=== PATIENT | male | born 1955 | race African-American/Black ===

== ENCOUNTER 2019-06-11 09:44 | Emergency (ER) | payer OTHER ==
[~2019-06-11] VITALS: Ht 200.7 cm; Wt 74.8 kg
[~2019-06-11 09:44] MED LIST: CYAN1TAB19 PO; DOCU100C28 PO; FERR-36 PO; FERR325T14 PO; FOLI1TAB16 PO; FURO40TA4 PO; HYDR25TA PO; INSU100V8 SQ; OMEP40CA5 PO; PENT400T7 PO; SUCR1TAB PO
[2019-06-11 10:31] LABS: CALCIUM 8.9 mg/dL (8.5-10.1); CREATININE 1.2 mg/dL (0.7-1.3); GFR 73.8; POTASSIUM 5.9 mmol/L (3.5-5.1)
[2019-06-11 10:35] LABS: BASO # 0.2 x10^3/uL (0.0-0.2); BASO % 4 % (0-3); EOS # 0.3 x10^3/uL (0.0-0.7); EOS % 5 % (0-3); HEMATOCRIT 23.4 % (39.0-53.0); HEMOGLOBIN 7.8 g/dL (13.0-17.5); LYMPH % 16 % (24-48); MEAN CORPUSCULAR HEMOGLOBIN 34 pg (25-35); MEAN CORPUSCULAR HGB CONC 33 g/dL (31-37); MEAN CORPUSCULAR VOLUME 103 fL (79-100); MONO # 0.4 x10^3/uL (0.0-1.1); MONO % 6 % (0-9); NEUT # 4.2 x10^3/uL (1.8-7.7); NEUT % 69 % (31-73); PLATELET COUNT 155 x10^3/uL (140-400); RED BLOOD COUNT 2.27 x10^6/uL (4.30-5.70); RED CELL DISTRIBUTION WIDTH 21.9 % (11.5-14.5); WHITE BLOOD COUNT 6.2 x10^3/uL (4.0-11.0)
[2019-06-11 10:36] LABS: ALBUMIN 3.2 g/dL (3.4-5.0); ALBUMIN/GLOBULIN RATIO 0.8 (1.0-1.7); TOTAL BILIRUBIN 0.7 mg/dL (0.2-1.0); TOTAL PROTEIN 7.4 g/dL (6.4-8.2)
--- NOTE | 2019-06-11 10:59 | PHYS DOC ---
Past Medical History Past Medical History: Diabetes-Type II Past Surgical History: Cholecystectomy Alcohol Use: None Drug Use: Marijuana Adult General Chief Complaint Chief Complaint: ABNORMAL LABS HPI HPI Patient is a 63 year old male with history of diabetes that 2, new diagnosis of gastric cancer who presents to the ED today complaining of hypertension. Patient states he had labs done at the oncologist office and they called him today informing him his potassium was 6.0. Patient denies any symptoms. Review of Systems Review of Systems Constitutional: Denies fever or chills [] Eyes: Denies change in visual acuity, redness, or eye pain [] HENT: Denies nasal congestion or sore throat [] Respiratory: Denies cough or shortness of breath [] Cardiovascular: Reports hyperkalemia GI: Denies abdominal pain, nausea, vomiting, bloody stools or diarrhea [] : Denies dysuria or hematuria [] Musculoskeletal: Denies back pain or joint pain [] Integument: Denies rash or skin lesions [] Neurologic: Denies headache, focal weakness or sensory changes [] All other systems were reviewed and found to be within normal limits, except as documented in this note. Current Medications Current Medications Current Medications Medications (Trade) Dose Ordered Sig/Josie Start Time Stop Time Status Last Admin Dose Admin Calcium Gluconate (Calcium Gluconate) 1,000 mg 1X ONCE 06/11/19 11:15 06/11/19 11:16 DC 06/11/19 11:15 1,000 MG Dextrose (Dextrose 50%-Water Syringe) 25 gm 1X ONCE 06/11/19 11:15 06/11/19 11:16 DC 06/11/19 11:15 25 GM Insulin Human Regular (HumuLIN R VIAL) 10 unit 1X ONCE 06/11/19 11:15 06/11/19 11:16 DC 06/11/19 11:21 10 UNIT Sodium Bicarbonate (Sodium Bicarb Adult 8.4% Syr) 50 meq 1X ONCE 06/11/19 11:15 06/11/19 11:16 DC 06/11/19 11:15 50 MEQ Sodium Chloride 1,000 ml @ 1,000 mls/hr 1X ONCE 06/11/19 11:00 06/11/19 11:59 DC 06/11/19 11:03 1,000 MLS/HR Allergies Allergies Allergies Coded Allergies Type Severity Reaction Last Updated Verified No Known Drug Allergies 05/27/19 No Physical Exam Physical Exam Constitutional: Well developed, well nourished, no acute distress, non-toxic appearance. [] HENT: Normocephalic, atraumatic, bilateral external ears normal, oropharynx moist, no oral exudates, nose normal. [] Eyes: PERRLA, EOMI, conjunctiva normal, no discharge. [] Neck: Normal range of motion, no tenderness, supple, no stridor. [] Cardiovascular:Heart rate regular rhythm, no murmur [] Lungs & Thorax: Bilateral breath sounds clear to auscultation [] Abdomen: Bowel sounds normal, soft, no tenderness, no masses, no pulsatile masses. [] Skin: Warm, dry, no erythema, no rash. [] Back: No tenderness, no CVA tenderness. [] Extremities: No tenderness, no cyanosis, no clubbing, ROM intact, no edema. [] Neurologic: Alert and oriented X 3, normal motor function, normal sensory function, no focal deficits noted. [] Psychologic: Affect normal, judgement normal, mood normal. [] Current Patient Data Vital Signs Vital Signs Date Time Temp Pulse Resp B/P (MAP) Pulse Ox O2 Delivery O2 Flow Rate FiO2 06/11/19 09:54 98.8 80 16 142/74 (96) 97 Room Air 98.8 Lab Values Laboratory Tests Test 06/11/19 10:10 06/11/19 12:40 White Blood Count 6.2 x10^3/uL (4.0-11.0) Red Blood Count 2.27 x10^6/uL (4.30-5.70) L Hemoglobin 7.8 g/dL (13.0-17.5) L Hematocrit 23.4 % (39.0-53.0) L Mean Corpuscular Volume 103 fL (79-100) H Mean Corpuscular Hemoglobin 34 pg (25-35) Mean Corpuscular Hemoglobin Concent 33 g/dL (31-37) Red Cell Distribution Width 21.9 % (11.5-14.5) H Platelet Count 155 x10^3/uL (140-400) Neutrophils (%) (Auto) 69 % (31-73) Lymphocytes (%) (Auto) 16 % (24-48) L Monocytes (%) (Auto) 6 % (0-9) Eosinophils (%) (Auto) 5 % (0-3) H Basophils (%) (Auto) 4 % (0-3) H Neutrophils # (Auto) 4.2 x10^3/uL (1.8-7.7) Lymphocytes # (Auto) 1.0 x10^3/uL (1.0-4.8) Monocytes # (Auto) 0.4 x10^3/uL (0.0-1.1) Eosinophils # (Auto) 0.3 x10^3/uL (0.0-0.7) Basophils # (Auto) 0.2 x10^3/uL (0.0-0.2) Platelet Estimate Adequate (ADEQUATE) Large Platelets Occ Anisocytosis Mod Sodium Level 144 mmol/L (136-145) 146 mmol/L (136-145) H Potassium Level 5.9 mmol/L (3.5-5.1) H 5.4 mmol/L (3.5-5.1) H Chloride Level 112 mmol/L (98-107) H 115 mmol/L (98-107) H Carbon Dioxide Level 25 mmol/L (21-32) 25 mmol/L (21-32) Anion Gap 7 (6-14) 6 (6-14) Blood Urea Nitrogen 31 mg/dL (8-26) H 30 mg/dL (8-26) H Creatinine 1.2 mg/dL (0.7-1.3) 1.2 mg/dL (0.7-1.3) Estimated GFR (Cockcroft-Gault) 73.8 73.8 BUN/Creatinine Ratio 26 (6-20) H Glucose Level 147 mg/dL (70-99) H 54 mg/dL (70-99) L Calcium Level 8.9 mg/dL (8.5-10.1) 8.7 mg/dL (8.5-10.1) Total Bilirubin 0.7 mg/dL (0.2-1.0) Aspartate Amino Transferase (AST) 25 U/L (15-37) Alanine Aminotransferase (ALT) 18 U/L (16-63) Alkaline Phosphatase 106 U/L (46-116) Total Protein 7.4 g/dL (6.4-8.2) Albumin 3.2 g/dL (3.4-5.0) L Albumin/Globulin Ratio 0.8 (1.0-1.7) L Laboratory Tests 06/11/19 10:10 Laboratory Tests 06/11/19 10:10 06/11/19 12:40 EKG EKG [address] Frias sinus rhythm heart rate 92 no STEMI[] Radiology/Procedures Radiology/Procedures [] Course & Med Decision Making Course & Med Decision Making Pertinent Labs and Imaging studies reviewed. (See chart for details) This is a 63-year-old male patient with new diagnosis of gastric cancer who presents to the ED today complaining of hyperkalemia from labs that were done yesterday. Potassium was noted at 6.1 yesterday. CMP with potassium of 5.9, creatinine is normal, glucose is 147. Hemoglobin 7.8, hematocrit 23.[address] Rodriguez nephrology, she recommended temporary measures including bicarbonate, calcium gluconate, insulin and IV fluids [address] Frank who accepted patient for admission [address] Gamboa's oncologist DIRECTOR OF DESIGN she states this patient is scheduled to have a PET scan tomorrow morning and should not be admitted in the hospital or must be discharged first thing tomorrow morning because the PET scan cannot be done inpatient. [address] Frank who requested we discharge patient to home Potassium will be repeated before patient is discharged Dragon Disclaimer Dragmarbin Disclaimer This electronic medical record was generated, in whole or in part, using a voice recognition dictation system. Departure Departure Impression: Primary Impression: Hyperkalemia Additional Impression: Anemia Disposition: 01 HOME, SELF-CARE Condition: STABLE Referrals: JOSH HODGE MD (PCP) Please follow-up with your own doctor as soon as you can Patient Instructions: Hyperkalemia, [id number] Additional Instructions: Your potassium was 5.4. Please follow-up with your own doctor as soon as you can. Problem Qualifiers Additional Impression: Anemia Anemia type: unspecified type Qualified Codes: D64.9 - Anemia, unspecified RADHA RAMIREZ [employer]NAL MECH[employer]IC Jun 11, 2019 10:59
[2019-06-11] MEDS ORDERED: IV NORMAL SALINE 1000ML BAG 1,000 ML IV ONE (11:00)
[2019-06-11] MEDS ORDERED: CALCIUM GLUCONATE 1,000 MG/10 ML VIAL. IVP ONE (11:15)
[2019-06-11] MEDS ORDERED: DEXTROSE 50% 25 GM / 50ML DISP.SYRIN. IV ONE (11:15)
[2019-06-11] MEDS ORDERED: SODIUM BICARB ADULT 8.4% 50 MEQ/50 ML DISP.SYRIN. IV ONE (11:15)
[2019-06-11] MEDS ORDERED: INSULIN REGULAR 100 UNIT/ML 3ML VIAL. IV ONE (11:15)
--- NOTE | 2019-06-11 11:21 | EKG ---
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
[2019-06-11 11:35] LABS: ANISOCYTOSIS MOD; PLT ESTIMATE ADEQUATE (ADEQUATE)
[2019-06-11 12:57] LABS: CALCIUM 8.7 mg/dL (8.5-10.1); CREATININE 1.2 mg/dL (0.7-1.3); GFR 73.8; POTASSIUM 5.4 mmol/L (3.5-5.1)
[2019-06-11 13:36] VITALS: BP 149/75
== END 2019-06-11 13:49 | disposition home or self-care (01) ==
LOC: ER 09:44
DX: E87.5 Hyperkalemia (principal); D64.9 Anemia, unspecified; I10 Essential (primary) hypertension; E11.9 Type 2 diabetes mellitus without complications; Z90.49 Acquired absence of other specified parts of digestive tract
CPT/HCPCS: 36415; 80048; 80053; 85025; 93005; 96374; 96375; 99285; J0610; J1815; J7030; J7042

== ENCOUNTER → 2019-06-19 | Outpatient (CLI) | payer OTHER ==
[2019-06-11 09:54] VITALS: BP 142/74
[~2019-06-19] MED LIST changes: +AMLO5TAB10 PO; +ASPI325T11 PO; +ATOR10TA60 PO; +OMEP40CA45 PO; -OMEP40CA5 PO
== END ==
LOC: PETSC 11:34
PROVIDERS: ATTEND Internal Medicine Hematology & Oncology
DX: Z53.9 Procedure and treatment not carried out, unspecified reason (principal)

== ENCOUNTER → 2019-06-26 | Outpatient (CLI) | payer OTHER ==
[2019-06-11 09:54] VITALS: BP 142/74
== END ==
LOC: PETSC 08:11
PROVIDERS: ATTEND Internal Medicine Hematology & Oncology
DX: Z53.9 Procedure and treatment not carried out, unspecified reason (principal)

== ENCOUNTER → 2019-07-04 | Outpatient (CLI) | payer OTHER ==
[2019-06-11 09:54] VITALS: BP 142/74
[~2019-07-04] MED LIST changes: -AMLO5TAB10 PO; -ASPI325T11 PO; -ATOR10TA60 PO
--- NOTE | 2019-07-04 11:58 | RAD ---
CLINICAL HISTORY: STOMACH CA INDICATION: Initial evaluation. COMPARISON: None available. TECHNIQUE: Location of scan: [facility] Radiopharmaceutical Dose: 16.37 mCi F-18 FDG intravenous Blood glucose at time of study: 112 FDG uptake time = 60 minutes. Images were obtained from the mid head to the mid thighs. A low dose, noncontrast CT study was performed for the purpose of attenuation correction and anatomic localization. FINDINGS: Head and Neck: Physiologic activity is seen within the head and neck Chest: Focus of right axillary uptake corresponds to a 1.6 x 0.7 cm right axillary lymph node, morphologically normal in appearance, SUV Max 4.5. No suspicious hypermetabolic lung nodule or mediastinal lymph nodes Abdomen and Pelvis: Diffuse gastric wall thickening may be from known gastric malignancy. Low-level gastric FDG uptake with an SUV max of 3.2. A few gastrohepatic ligament lymph nodes are seen, with an SUV max of 1.6. Otherwise, physiologic activity is seen within the renal collecting systems, bowel and solid organs including liver. Skeletal: No suspicious osseous uptake is seen. Reference SUV Values: Mediastinal SUV Max: 1.64 Liver SUV Max: 2.9 IMPRESSION: 1. A 1.6 x 0.7 cm right axillary lymph node is hypermetabolic with an SUV max of 4.5. Given the normal morphologic appearance of this lymph node, this may be reactive although metastatic disease cannot be entirely excluded. 2. Low-level uptake within the stomach with associated gastric wall thickening may correspond to known gastric malignancy. Of note, this may represent a non-FDG avid malignancy. 3. A few mildly prominent gastrohepatic ligament lymph nodes are seen with background/low level FDG uptake Radiation Dosimetry: The radiopharmaceutical used for this exam delivers approximately 0.7 mSv/mCi (70 mRem/mCi) Source: ICRP Publication 106
== END | disposition home or self-care (01) ==
LOC: PETSC 09:30
PROVIDERS: ATTEND Internal Medicine Hematology & Oncology
DX: C16.9 Malignant neoplasm of stomach, unspecified (principal); R59.0 Localized enlarged lymph nodes
CPT/HCPCS: 78815; A9552

== ENCOUNTER 2019-07-11 11:47 | Emergency (ER) | payer OTHER ==
[~2019-07-11] VITALS: Ht 200.7 cm; Wt 70.3 kg
[2019-07-11 12:30] LABS: BASO % 1 % (0-3); EOS # 0.1 x10^3/uL (0.0-0.7); EOS % 2 % (0-3); HEMATOCRIT 25.6 % (39.0-53.0); HEMOGLOBIN 8.4 g/dL (13.0-17.5); LYMPH # 0.7 x10^3/uL (1.0-4.8); LYMPH % 20 % (24-48); MEAN CORPUSCULAR HEMOGLOBIN 38 pg (25-35); MEAN CORPUSCULAR HGB CONC 33 g/dL (31-37); MEAN CORPUSCULAR VOLUME 116 fL (79-100); MONO # 0.4 x10^3/uL (0.0-1.1); MONO % 11 % (0-9); NEUT # 2.3 x10^3/uL (1.8-7.7); NEUT % 67 % (31-73); PLATELET COUNT 144 x10^3/uL (140-400); WHITE BLOOD COUNT 3.5 x10^3/uL (4.0-11.0)
[2019-07-11 12:38] LABS: CREATININE 1.5 mg/dL (0.7-1.3)
[2019-07-11 12:44] LABS: ALBUMIN 3.4 g/dL (3.4-5.0); ALBUMIN/GLOBULIN RATIO 0.9 (1.0-1.7); CALCIUM 8.8 mg/dL (8.5-10.1); MAGNESIUM 1.8 mg/dL (1.8-2.4); TOTAL BILIRUBIN 0.5 mg/dL (0.2-1.0); TOTAL PROTEIN 7.4 g/dL (6.4-8.2)
[2019-07-11 12:47] LABS: POTASSIUM 5.8 mmol/L (3.5-5.1)
--- NOTE | 2019-07-11 13:07 | PHYS DOC ---
Past Medical History Past Medical History: Cancer, Diabetes-Type II, Other Additional Past Medical Histor: stomach CA Past Surgical History: Cholecystectomy Alcohol Use: Occasionally Drug Use: Marijuana Adult General Chief Complaint Chief Complaint: ABNORMAL LABS HPI HPI Patient is a 63 year old male who presents with complaining of abnormal labs. Patient was diagnosed with gastric cancer at the end of April and had 1 chemotherapy on June 16 and seen by his primary care physician 3 days ago and had blood test that showed abnormal renal test and hyperkalemia and prescription was given but patient did go to a different pharmacy yesterday and this morning was told by his physician office nurse to come to the hospital for treatment. Patient denies nausea and vomiting, fever and chills, abdominal pain, chest pain, muscle cramp. Review of Systems Review of Systems Constitutional: Denies fever or chills [] Eyes: Denies change in visual acuity, redness, or eye pain [] HENT: Denies nasal congestion or sore throat [] Respiratory: Denies cough or shortness of breath [] Cardiovascular: No additional information not addressed in HPI [] GI: Denies abdominal pain, nausea, vomiting, bloody stools or diarrhea [] : Denies dysuria or hematuria [] Musculoskeletal: Denies back pain or joint pain [] Integument: Denies rash or skin lesions [] Neurologic: Denies headache, focal weakness or sensory changes [] Endocrine: Denies polyuria or polydipsia [] All other systems were reviewed and found to be within normal limits, except as documented in this note. Current Medications Current Medications Current Medications Medications (Trade) Dose Ordered Sig/Josie Start Time Stop Time Status Last Admin Dose Admin Sodium Polystyrene Sulfonate (Kayexalate) 15 gm 1X ONCE 07/11/19 13:15 07/11/19 13:18 DC 07/11/19 14:34 15 GM Sodium Chloride 1,000 ml @ 1,000 mls/hr 1X ONCE 07/11/19 13:15 07/11/19 14:14 DC 07/11/19 13:16 1,000 MLS/HR Allergies Allergies Allergies Coded Allergies Type Severity Reaction Last Updated Verified No Known Drug Allergies 05/27/19 No Physical Exam Physical Exam Constitutional: Well developed, mild distress, non-toxic appearance , thin and cachectic. [] HENT: Normocephalic, atraumatic. Eyes: PERRLA, EOMI, conjunctiva normal, no discharge,pale.[] Neck: Normal range of motion, no tenderness, supple, no stridor. [] Cardiovascular:Heart rate regular rhythm, no murmur [] Lungs & Thorax: Bilateral breath sounds clear to auscultation [] Abdomen: Bowel sounds normal, soft, no tenderness, no masses, no pulsatile masses. [] Skin: Warm, dry, no erythema, no rash. [] Back: No tenderness, no CVA tenderness. [] Extremities: No tenderness, no cyanosis, no clubbing, ROM intact, no edema. [] Neurologic: Alert and oriented X 3, no focal deficits noted. [] Psychologic: Affect normal, judgement normal, mood normal. [] Current Patient Data Vital Signs Vital Signs Date Time Temp Pulse Resp B/P (MAP) Pulse Ox O2 Delivery O2 Flow Rate FiO2 07/11/19 14:13 74 16 155/73 (100) 100 Room Air 07/11/19 11:59 98.2 98.2 Lab Values Laboratory Tests Test 07/11/19 12:20 White Blood Count 3.5 x10^3/uL (4.0-11.0) L Red Blood Count 2.20 x10^6/uL (4.30-5.70) L Hemoglobin 8.4 g/dL (13.0-17.5) L Hematocrit 25.6 % (39.0-53.0) L Mean Corpuscular Volume 116 fL (79-100) H Mean Corpuscular Hemoglobin 38 pg (25-35) H Mean Corpuscular Hemoglobin Concent 33 g/dL (31-37) Red Cell Distribution Width 24.0 % (11.5-14.5) H Platelet Count 144 x10^3/uL (140-400) Neutrophils (%) (Auto) 67 % (31-73) Lymphocytes (%) (Auto) 20 % (24-48) L Monocytes (%) (Auto) 11 % (0-9) H Eosinophils (%) (Auto) 2 % (0-3) Basophils (%) (Auto) 1 % (0-3) Neutrophils # (Auto) 2.3 x10^3/uL (1.8-7.7) Lymphocytes # (Auto) 0.7 x10^3/uL (1.0-4.8) L Monocytes # (Auto) 0.4 x10^3/uL (0.0-1.1) Eosinophils # (Auto) 0.1 x10^3/uL (0.0-0.7) Basophils # (Auto) 0.0 x10^3/uL (0.0-0.2) Platelet Estimate Adequate (ADEQUATE) Anisocytosis Present Macrocytosis Present Sodium Level 140 mmol/L (136-145) Potassium Level 5.8 mmol/L (3.5-5.1) H Chloride Level 109 mmol/L (98-107) H Carbon Dioxide Level 22 mmol/L (21-32) Anion Gap 9 (6-14) Blood Urea Nitrogen 30 mg/dL (8-26) H Creatinine 1.5 mg/dL (0.7-1.3) H Estimated GFR (Cockcroft-Gault) 57.0 BUN/Creatinine Ratio 20 (6-20) Glucose Level 126 mg/dL (70-99) H Calcium Level 8.8 mg/dL (8.5-10.1) Magnesium Level 1.8 mg/dL (1.8-2.4) Total Bilirubin 0.5 mg/dL (0.2-1.0) Aspartate Amino Transferase (AST) 21 U/L (15-37) Alanine Aminotransferase (ALT) 6 U/L (16-63) L Alkaline Phosphatase 68 U/L (46-116) Total Protein 7.4 g/dL (6.4-8.2) Albumin 3.4 g/dL (3.4-5.0) Albumin/Globulin Ratio 0.9 (1.0-1.7) L Laboratory Tests 07/11/19 12:20 Laboratory Tests 07/11/19 12:20 EKG EKG EKG interpreted by me. EKG at 1203 showed normal sinus rhythm at rate of 86, nonspecific T-wave abnormalities, no marked ME and QT intervals, normal axis, no acute ST and T-wave abnormalities. Radiology/Procedures Radiology/Procedures [] Course & Med Decision Making Course & Med Decision Making Pertinent Labs reviewed. (See chart for details) Evaluation of patient in ER showed 63-year-old male patient with history of gastric cancer presented to ER because of abnormal labs supported by his primary care physician office with elevation of potassium and BUN/creatinine. Patient had history of chronic renal insufficiency and hypokalemia. Potassium was 5.8 a nd patient treated with Kayexalate and IV fluid and was advised to follow-up with his primary care physician. Patient already has prescription for medication for hyperkalemia given by his primary care physician. Dragon Disclaimer Dragon Disclaimer This electronic medical record was generated, in whole or in part, using a voice recognition dictation system. Departure Departure Impression: Primary Impression: Hyperkalemia Additional Impressions: Anemia Chronic renal insufficiency Gastric cancer Disposition: HOME, SELF-CARE (at 1400) Condition: IMPROVED Referrals: Keron MUSA MD (PCP) Patient Instructions: Chronic Renal Insufficiency, Dehydration, Adult, Hyperkalemia Additional Instructions: Drink plenty of liquids Follow-up with your primary care physician in 3-5 days Return to ER if not getting better Problem Qualifiers Additional Impressions: Anemia Anemia type: unspecified type Qualified Codes: D64.9 - Anemia, unspecified Chronic renal insufficiency Chronic kidney disease stage: unspecified stage Qualified Codes: N18.9 - Chronic kidney disease, unspecified Gastric cancer Malignant neoplasm of stomach location: unspecified location Qualified Codes: C16.9 - Malignant neoplasm of stomach, unspecified STACIE CROOKS MD Jul 11, 2019 13:07
--- NOTE | 2019-07-11 13:12 | EKG ---
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
[2019-07-11] MEDS ORDERED: SODIUM POLYSTYRENE SULFON/SORB 15 GM/60 ML ORAL.SUSP PO ONE (13:15)
[2019-07-11] MEDS ORDERED: IV NORMAL SALINE 1000ML BAG 1,000 ML IV ONE (13:15)
[2019-07-11 13:46] LABS: ANISOCYTOSIS PRESENT
[2019-07-11 13:47] LABS: PLT ESTIMATE ADEQUATE (ADEQUATE)
[2019-07-11 14:13] VITALS: BP 155/73
== END 2019-07-11 14:40 | disposition home or self-care (01) ==
LOC: ER 11:51
DX: C16.9 Malignant neoplasm of stomach, unspecified (principal); E11.22 Type 2 diabetes mellitus with diabetic chronic kidney disease; N18.9 Chronic kidney disease, unspecified; D64.9 Anemia, unspecified; E87.5 Hyperkalemia; Z90.49 Acquired absence of other specified parts of digestive tract
CPT/HCPCS: 36415; 80053; 83735; 85025; 93005; 99285; J7030

== ENCOUNTER → 2020-03-30 | Outpatient (CLI) | payer MEDICARE ==
[2019-08-15 14:59] VITALS: BP 137/77
[~2020-03-30] MED LIST changes: +ACET500T68 PO; +AMLO5TAB10 PO; +ASPI325T11 PO; +ATOR10TA60 PO; +BISA5TAB4 PO; +CONTRAST GIVEN. MC PRN; +IOHEXOL 240 MG/ML 50ML VIAL. PO ONE; +IOHEXOL 300 MG/ML 100ML VIAL. IV ONE; +PANT40TA77 PO; +POLY17PO28 PO; +SODI650T PO
[2020-03-30 09:35] LABS: CREATININE 2.2 mg/dL (0.7-1.3); GFR 36.5
--- NOTE | 2020-03-30 15:26 | RAD ---
CT scan of the abdomen and pelvis with oral contrast only 03/30/2020 CLINICAL HISTORY: Gastric cancer. TECHNIQUE: After the oral administration of contrast only, contiguous, 5 mm axial sections were obtained through the abdomen and pelvis. One or more of the following individualized dose reduction techniques were utilized for this study: 1. Automated exposure control. 2. Adjustment of the mA and/or kV according to patient size. 3. Use of iterative reconstruction technique. FINDINGS: Comparison study is dated 05/26/2019. Images through the lung bases demonstrate minimal dependent subsegmental atelectasis bilaterally. A 1.2 cm rounded low-attenuation lesion is seen involving the left lobe of the liver consistent with a hepatic cyst. This is unchanged. The spleen, adrenal glands and kidneys are within normal limits. Calcifications are seen in the region of the pancreas consistent with chronic pancreatitis. No acute abnormality of the pancreas is seen. Fairly extensive atherosclerotic calcification of the abdominal aorta and its branches is noted. The abdominal aorta tapers normally. Surgical clips are seen within the gallbladder fossa consistent with a cholecystectomy. The diffuse wall thickening involving the antrum of the stomach has improved since the previous examination. Focal asymmetric wall thickening of the superior medial aspect of the gastric fundus is seen. This measures 5 cm in greatest diameter. A mass in this region is not excluded. This was not seen on the previous examination. The enlarged retroperitoneal lymph nodes seen on the previous examination have decreased in size slightly. On today's study they measure 1 to 1.7 cm in size. On the previous examination they measured 1.5 to 2.3 cm in size. No free fluid or free air is seen within the abdomen. There is no evidence of bowel obstruction. The appendix is well-visualized and is within normal limits. Images through the pelvis demonstrate the urinary bladder to be contracted. Calcifications are seen within the pelvis consistent with phleboliths. No free fluid is seen. No pelvic or inguinal lymphadenopathy is noted. Degenerative changes are seen involving the lower thoracic and throughout the lumbar spine. Very mild S-shaped curvature of the thoracolumbar spine is noted. Mild degenerative changes are seen involving both hips. IMPRESSION: 1. The diffuse wall thickening involving the antrum of the stomach has improved since the previous examination. 2. Focal asymmetric wall thickening of the superior medial aspect of the gastric fundus is seen. This measures 5 cm in greatest diameter. This is new since the previous study. A mass in this region is not excluded. 3. Slight interval decrease in size of the retroperitoneal lymphadenopathy. Electronically signed by: Georges Washington MD (03/30/2020 3:23 PM) [id number]
== END | disposition home or self-care (01) ==
LOC: CT 09:05
PROVIDERS: ATTEND Family Medicine
DX: C16.9 Malignant neoplasm of stomach, unspecified (principal); J98.11 Atelectasis; K76.89 Other specified diseases of liver; K86.1 Other chronic pancreatitis; I70.0 Atherosclerosis of aorta; M47.895 Other spondylosis, thoracolumbar region; M43.8X5 Other specified deforming dorsopathies, thoracolumbar region; M16.0 Bilateral primary osteoarthritis of hip
CPT/HCPCS: 36415; 74176; 82565; Q9966

== ENCOUNTER → 2020-05-21 | Outpatient (CLI) | payer MEDICARE ==
[2019-08-15 14:59] VITALS: BP 137/77
[~2020-05-21] MED LIST changes: -CONTRAST GIVEN. MC PRN; -IOHEXOL 240 MG/ML 50ML VIAL. PO ONE; -IOHEXOL 300 MG/ML 100ML VIAL. IV ONE
--- NOTE | 2020-05-21 17:57 | RAD ---
EXAM: PET W CT SKULL TO MIDTHIGH EXAM DATE: 05/21/2020 INDICATION: Gastric cancer restaging RADIOPHARMACEUTICAL: 14.9 mCi of F-18 Fluorodeoxyglucose (FDG) I.V. via the right hand. TECHNIQUE: Patient weight: 190 pounds. Following at least four-hour fasting, the patient's blood glucose was 89 mg/dl. Approximately 1 hour after administration of FDG, overlapping emission scanning was performed from the orbital meatal line through the pelvis. A low-dose CT was performed for attenuation correction purposes and anatomic localization. Fused images of PET and CT were reviewed. Any standardized uptake values (SUV) reported are maximum values within a volume region of interest, expressed in gm/ml. COMPARISON: Abdomen and pelvis CT without IV contrast of 03/30/2020 FINDINGS: PET: In the head and neck, there is high background activity in the adenoids and faucial tonsils to max SUV of 10.1. No cervical adenopathy and no intracranial photopenic defects. In the chest, background mediastinal activity measures a max SUV of 3.31. No abnormal FDG uptake in the mediastinum, lungs, pleural space or chest wall. In the abdomen and pelvis, there is high background activity in the gastrointestinal tract. Max SUV of the liver measures 3.58. There is activity at the gastric antrum to max SUV of 4.40. Activity in the rectal vault near the anorectal junction is also seen asymmetric to the left to max SUV of 4.68 of uncertain clinical significance. No abnormal uptake in the osseous structures. CT: Head and neck shows dense arterial calcifications in the bilateral distal common carotid arteries and proximal cervical ICAs. No bulky cervical adenopathy or masses are demineralized identified. In the chest, a right tunneled chest port is present from a jugular approach. There is dense multivessel coronary calcifications and ectasia of the ascending thoracic aorta to 4.3 cm no mediastinal adenopathy. No hilar adenopathy. Lungs show respiratory motion artifact that degrades detail but no lung masses or focal consolidation. Tiny subpleural bleb in the periphery of the right upper lobe is present in the setting of findings suggestive of underlying centrilobular pattern emphysema. No pleural effusion or pneumothorax. There is mild bilateral gynecomastia incidentally noted. Abdomen and pelvis shows mild residual gastric wall thickening notably in the distal body and antrum, cholecystectomy, calcifications in the pancreatic head, and advanced vascular degenerative changes with likely flow-limiting stenosis in the proximal right common iliac artery. No ascites, peritoneal nodularity, fluid collection or bulky lymph nodes. No acute or aggressive appearing osseous lesions. IMPRESSION: Mild residual distal gastric wall thickening with FDG uptake to max SUV of 4.4, barely above abdominal background activity is measured in the liver to max SUV of 3.6. This could be inflammatory. No evidence of metastatic disease is appreciated. Electronically signed by: Leann Cruz MD (05/21/2020 5:54 PM) [id number]
== END | disposition home or self-care (01) ==
LOC: PETSC 09:52
PROVIDERS: ATTEND Radiology Radiation Oncology
DX: C16.9 Malignant neoplasm of stomach, unspecified (principal); C77.8 Secondary and unspecified malignant neoplasm of lymph nodes of multiple regions; I70.8 Atherosclerosis of other arteries; I25.10 Atherosclerotic heart disease of native coronary artery without angina pectoris; I77.810 Thoracic aortic ectasia; J43.9 Emphysema, unspecified; N62 Hypertrophy of breast
CPT/HCPCS: 78815; A9552

== ENCOUNTER → 2020-08-16 | Outpatient (CLI) | payer MEDICARE, MEDICAID ==
[2020-08-01 11:59] VITALS: BP 144/58
[~2020-08-16] MED LIST changes: +AMLO-186 PO; -AMLO5TAB10 PO
[2020-08-16 12:46] LABS: BASO % 1 % (0-3); EOS # 0.4 x10^3/uL (0.0-0.7); EOS % 7 % (0-3); LYMPH # 1.5 x10^3/uL (1.0-4.8); LYMPH % 25 % (24-48); MEAN CORPUSCULAR HEMOGLOBIN 33 pg (25-35); MEAN CORPUSCULAR HGB CONC 32 g/dL (31-37); MEAN CORPUSCULAR VOLUME 104 fL (79-100); MONO # 0.6 x10^3/uL (0.0-1.1); MONO % 10 % (0-9); NEUT # 3.4 x10^3/uL (1.8-7.7); NEUT % 57 % (31-73); PLATELET COUNT 110 x10^3/uL (140-400); RED CELL DISTRIBUTION WIDTH 21.2 % (11.5-14.5); WHITE BLOOD COUNT 5.9 x10^3/uL (4.0-11.0)
[2020-08-16 12:48] LABS: HEMOGLOBIN 6.3 g/dL (13.0-17.5)
[2020-08-16 12:49] LABS: HEMATOCRIT 19.8 % (39.0-53.0)
[2020-08-16 12:59] LABS: CALCIUM 8.2 mg/dL (8.5-10.1); CREATININE 2.9 mg/dL (0.7-1.3); GFR 26.6; POTASSIUM 5.3 mmol/L (3.5-5.1)
[2020-08-16 13:05] LABS: ALBUMIN 3.4 g/dL (3.4-5.0); ALBUMIN/GLOBULIN RATIO 0.9 (1.0-1.7); TOTAL BILIRUBIN 0.9 mg/dL (0.2-1.0); TOTAL PROTEIN 7.3 g/dL (6.4-8.2)
== END ==
LOC: ONCLAB 12:30
PROVIDERS: ATTEND Internal Medicine Hematology & Oncology
DX: C16.9 Malignant neoplasm of stomach, unspecified (principal)
CPT/HCPCS: 36415; 80053; 85025

== ENCOUNTER → 2020-08-23 | Outpatient (CLI) | payer MEDICARE ==
[2020-08-20 11:00] VITALS: BP 134/61
[2020-08-23 14:33] LABS: BASO % 1 % (0-3); EOS # 0.5 x10^3/uL (0.0-0.7); EOS % 8 % (0-3); HEMATOCRIT 26.4 % (39.0-53.0); HEMOGLOBIN 8.8 g/dL (13.0-17.5); LYMPH # 1.1 x10^3/uL (1.0-4.8); LYMPH % 20 % (24-48); MEAN CORPUSCULAR HEMOGLOBIN 34 pg (25-35); MEAN CORPUSCULAR HGB CONC 33 g/dL (31-37); MEAN CORPUSCULAR VOLUME 102 fL (79-100); MONO # 0.6 x10^3/uL (0.0-1.1); MONO % 11 % (0-9); NEUT # 3.4 x10^3/uL (1.8-7.7); NEUT % 60 % (31-73); PLATELET COUNT 96 x10^3/uL (140-400); RED CELL DISTRIBUTION WIDTH 17.7 % (11.5-14.5); WHITE BLOOD COUNT 5.6 x10^3/uL (4.0-11.0)
[2020-08-23 14:56] LABS: CALCIUM 8.4 mg/dL (8.5-10.1); CREATININE 3.1 mg/dL (0.7-1.3); GFR 24.6; POTASSIUM 5.2 mmol/L (3.5-5.1)
[2020-08-23 15:02] LABS: ALBUMIN 3.6 g/dL (3.4-5.0); ALBUMIN/GLOBULIN RATIO 0.9 (1.0-1.7); TOTAL BILIRUBIN 0.7 mg/dL (0.2-1.0); TOTAL PROTEIN 7.7 g/dL (6.4-8.2)
== END ==
LOC: ONCLAB 13:51
PROVIDERS: ATTEND Internal Medicine Hematology & Oncology
DX: C16.9 Malignant neoplasm of stomach, unspecified (principal)
CPT/HCPCS: 36415; 80053; 85025